=== PATIENT | male | born 1980 | race Caucasian/White ===

== ENCOUNTER 2020-11-19 10:47 | Emergency (ER) | payer OTHER ==
[~2020-11-19] VITALS: Ht 172.7 cm; Wt 99.8 kg
--- NOTE | ~2020-11-19 | EMS ---
[address] [address] EMS Patient Care Report Name: GARTH CARTAGENA Room #: DEP BERK[place] Castorena#: [id number] Admission: 11/19/20 Attend Phys: Discharge: 11/19/20 Date of : 82 Report #: [id number] THIS REPORT FOR: //name// Report Transmitted: 11/20/2020 01:30 EMS Care Summary [place], [place]/[facility] Incident [id number] @ 11/19/2020 10:19 Incident Location [address] [place] [address] / [place] [address] Patient GARTH CARTAGENA Male, 40 Years 1980 Patient Address Chief Complaint ETOH/ACIAL INJURY Disposition Transported No Lights/[place] Dispatch Reason Unknown Problem/Person Down Transported To [facility] Narrative SCENE: ON ARRIVAL PT FOUND SITTING UPRIGHT AT [employer] WITH [employer] ON SCENE. PT HAS A STRONG SMELL OF ETOH ABOUT HIS PERSON WITH MULTIPE ALCOHOL BOTTLES AROUND HIM. PT HAS BLOOD ABOUT THE NOSE. PT IS AWAKE AND ALERT BUT WILL NOT ANSWER ANY QUESTIONS. PT LIFTED ONTO [facility]: VITALS MONITORED. NO CHANGES. Initial Vitals @10:34P: 122,R: 14,Pain: 0/10,GCS: 12,Glucose: 81,Revised Trauma: 11, @10:43P: 124,R: 14,BP: 114/58,GCS: 12,Revised Trauma: 11, Assessments [address] [place] [address] EMS Patient Care Report Name: GARTH CARTAGENA Room #: DEP Raffaele#: [id number] Admission: 11/19/20 Attend Phys: Discharge: 11/19/20 Date of : 82 Report #: [id number] @10:34MENTAL:Other,SKIN:HEENT:Head/Face: Other,LUNG SOUNDS:ABDOMEN:PELVIS//GI:EXTREMITIES:PULSE:NEURO:No Abnormalities,@10:42MENTAL:Other,SKIN:HEENT:LUNG SOUNDS:ABDOMEN:PELVIS//GI:EXTREMITIES:PULSE:NEURO: Impression Alcohol use Procedures @10:34ALS AssessmentResponse: UnchangedSucceeded@10:36StretcherResponse: Unchanged Timeline 10:18,Call Received 10:18,Dispatch Notified 10:19,Dispatched 10:19,En Route 10:33,On Scene 10:33,At Patient 10:34,BP: 112/ M,PULSE: 122,RR: 14 R,SPO2: Ox,ETCO2: ,B,PAIN: 0,GCS: 12, 10:34,ALS Assessment,Response: UnchangedSucceeded, 10:36,Stretcher,Response: Unchanged 10:39,Depart Scene 10:43,BP: 114/58 M,PULSE: 124,RR: 14 R,SPO2: Ox,ETCO2: ,BG: ,PAIN: ,GCS: 12, 10:44,At Destination 10:56,Call Closed Disclaimer [email or web address] Copyright 2020 [employer] This EMS Care Summary contains data elements from the applicable legal record (which may be displayed differently). It is designed to provide pertinent information for the following purposes: continuity of care, clinical quality, and state data reporting. The complete legal record is available to ED staff and administrators of the receiving hospital in [employer]'s Patient Tracker. All data is provided "as is."
[2020-11-19 11:26] LABS: ABSOLUTE NEUTROPHILS 1.9 thou/uL (1.4-8.2); BASOPHILS 0.7 % (0.0-2.0); EOSINOPHILS 1.3 % (0.0-3.0); HEMATOCRIT 45.8 % (42.0-52.0); HEMOGLOBIN 15.6 gm/dL (14.0-18.0); LYMPHOCYTES 55.1 % (24.0-44.0); MCH 33.4 pg (26.0-34.0); MCHC 34.2 g/dL (28.0-37.0); MCV 97.7 fL (80.0-100.0); MONOCYTES 7.6 % (1.0-8.0); PLATELET COUNT 216 thou/uL (150-400); POLYS 35.3 % (36.0-66.0); RBC 4.68 mil/uL (4.50-6.00); RDW 14.3 % (10.5-14.5); WBC 5.5 thou/uL (4.0-11.0)
[2020-11-19 11:48] LABS: ALBUMIN 3.9 g/dL (3.4-5.0); CREATININE 0.7 mg/dL (0.7-1.3); POTASSIUM 3.4 mmol/L (3.5-5.1); TOTAL BILIRUBIN 0.2 mg/dL (0.2-1.0); TOTAL PROTEIN 7.6 g/dL (6.4-8.2)
[2020-11-19 11:59] LABS: URINE BILIRUBIN NEGATIVE (Negative); URINE BLOOD NEGATIVE (Negative); URINE CLARITY CLEAR; URINE COLOR YELLOW; URINE GLUCOSE-RANDOM* NEGATIVE (Negative); URINE KETONES NEGATIVE (Negative); URINE LEUKOCYTES-REFLEX NEGATIVE (Negative); URINE NITRITE-REFLEX NEGATIVE (Negative); URINE PROTEIN (DIPSTICK) NEGATIVE (Negative); URINE SPECIFIC GRAVITY <= 1.005 (1.005-1.035); URINE UROBILINOGEN 0.2 E.U./dl (0.2-1.0)
[2020-11-19 12:01] LABS: CALCIUM 9.2 mg/dL (8.5-10.1)
[2020-11-19 13:32] VITALS: BP 122/88
--- NOTE | 2020-11-19 15:22 | EKG ---
[place] [address] [facility] [place] [address] ELECTROCARDIOGRAM REPORT Name: GARTH CARTAGENA [place] Room #: DEP [facility]#: [id number] Admission: 11/19/20 Attend Phys: Discharge: 11/19/20 Date of : 82 Report #: [id number] [facility] ED Test Date: 2020-11-19 Test Time: 12:13:13 Pat Name: GARTH CARTAGENA Department: Room: Gender: [place] Upholsterer: nehemias : 1980 Requested By: Angel Sanches Order Number: [id number] MD: Gasper Anderson Measurements Intervals [place] Rate: 40 P: 53 OK: 134 QRS: 91 QRSD: 115 T: 73 QT: 500 QTc: 408 Interpretive Statements Sinus bradycardia Otherwise normal tracing Compared to ECG 09/28/2002 15:49:23 Intraventricular conduction delay now present Sinus tachycardia no longer present T-wave abnormality no longer present Electronically Signed On 11-19-2020 15:21:54 [employer] by Gasper Anderson [email or web address] <ELECTRONICALLY SIGNED> By: Gasper Anderson MD, [facility] 11/19/20 1521 D: [id number] 12 Gasper Anderson MD, FAC /EPI
== END 2020-11-19 13:33 ==
LOC: ER 10:47
PROVIDERS: Emergency Medicine
DX: S00.511A Abrasion of lip, initial encounter (principal); F10.129 Alcohol abuse with intoxication, unspecified; X58.XXXA Exposure to other specified factors, initial encounter; Y93.89 Activity, other specified; Y92.89 Other specified places as the place of occurrence of the external cause; Y99.9 Unspecified external cause status; Y90.9 Presence of alcohol in blood, level not specified